=== PATIENT | female | born 1990 | race American Indian/Alaskan Native ===

== ENCOUNTER 2017-01-26 23:18 | Emergency (ER) | payer MEDICAID ==
[2017-01-27 05:07] VITALS: BP 114/67
--- NOTE | 2017-01-27 05:38 | Emergency Department Report ---
HPI - General Chief Complaint: Extremity Injury, Lower Time Seen by Provider: 01/27/17 05:34 - HPI HPI: Patient is a 26-year-old female presents to ED complaining of right foot pain 1 day. Patient states she was stepping out of her back porch earlier today when she missed a step and tripped and twisted her foot. Patient states she was fine for a couple of hours but about 4 hours later she started to experience pain with weightbearing on the right foot. Patient denies fever/chills/nausea/vomiting/abdominal pain/chest pain/shortness of breath or any other problems. ED Past Medical Hx - Past Medical History Previous Medical History?: Yes Hx Hypertension: Yes (PIH) - Surgical History Past Surgical History?: No - Social History Smoking Status: Never Smoker - Medications Home Medications: Home Medications Medication Instructions Recorded Confirmed Last Taken Type Acetaminophen/Codeine [Tylenol #3] 1 tab PO Q6H PRN #12 tab 01/27/17 Unknown Rx Ibuprofen [Motrin] 800 mg PO Q8HR PRN #30 tablet 01/27/17 Unknown Rx ED Review of Systems ROS: Stated complaint: POSS BROKEN R TOE/PAIN Other details as noted in HPI Constitutional: denies: chills, fever Eyes: denies: eye pain, eye discharge, vision change ENT: denies: ear pain, throat pain Respiratory: denies: cough, shortness of breath, wheezing Cardiovascular: denies: chest pain, palpitations Endocrine: no symptoms reported Gastrointestinal: denies: abdominal pain, nausea, vomiting, diarrhea Genitourinary: denies: urgency, dysuria, discharge Musculoskeletal: denies: back pain, joint swelling, arthralgia Skin: denies: rash, lesions, change in color, pruritus Neurological: denies: headache, weakness, paresthesias Psychiatric: denies: anxiety, depression Hematological/Lymphatic: denies: easy bleeding, easy bruising Physical Exam - Physical Exam Vital Signs: Vital Signs 01/27/17 01/27/17 01/27/17 00:12 03:10 03:23 Temperature 98.4 F Pulse Rate 70 Respiratory 18 12 Rate Blood Pressure 106/65 98/41 Blood Pressure [Right] O2 Sat by Pulse 100 98 Oximetry 01/27/17 01/27/17 01/27/17 03:30 03:45 04:00 Temperature 98.5 F Pulse Rate Respiratory Rate Blood Pressure 97/58 97/61 96/53 Blood Pressure 128/78 [Right] O2 Sat by Pulse Oximetry 01/27/17 01/27/17 01/27/17 04:15 04:30 04:45 Temperature Pulse Rate Respiratory Rate Blood Pressure 98/59 104/53 114/67 Blood Pressure [Right] O2 Sat by Pulse Oximetry Physical Exam: GENERAL: Alert and oriented x3, no apparent distress, Normal Gait, atraumatic. HEAD: Head is normocephalic and a-traumatic. EYES: Extra ocular muscles are intact. Pupils are equal, round, and reactive to light and accommodation. NOSE: Nose symetrical, Nontender,Nares appeared normal. NECK: Supple. Non edematous, No carotid bruits. No lymphadenopathy or thyromegaly. No C-spine tenderness LUNGS: Symetrical with respiration, No wheezing, no rales or crackles, CTAB. HEART: S1, S2 present, regular rate and rhythm without murmur, no rubs, no gallops. ABDOMEN: No organomegaly was noted,Positive bowel sounds, soft, and non- distended. . Nontender to palpation on all Quadrants, NO CVA tenderness. EXTREMITIES/MUSCULOSKELETAL: No cyanosis, clubbing, rash, lesions or edema. Full ROM bilaterally. LE Pulses 2+ bilaterally. LE 5+ strength bilaterally. Foot has full range of motion. Patient able to wiggle her toes without difficulty. Mild tenderness to palpation over the fourth and fifth metatarsal bones. No swelling, no ecchymosis, no dislocation. Patient able to plantarflex and dorsiflex the right foot with no pain NEUROLOGIC: No focal Deficit, Cranial nerves II through XII are grossly intact. No loss of sensation, PSYCHIATRIC: Mood is congruent with affect, denies suicidal or homicidal ideations. SKIN: Warm and dry, No lesions, No ulceration or induration present. ED Course Vital Signs 01/27/17 01/27/17 01/27/17 00:12 03:10 03:23 Temperature 98.4 F Pulse Rate 70 Respiratory 18 12 Rate Blood Pressure 106/65 98/41 Blood Pressure [Right] O2 Sat by Pulse 100 98 Oximetry 01/27/17 01/27/17 01/27/17 03:30 03:45 04:00 Temperature 98.5 F Pulse Rate Respiratory Rate Blood Pressure 97/58 97/61 96/53 Blood Pressure 128/78 [Right] O2 Sat by Pulse Oximetry 01/27/17 01/27/17 01/27/17 04:15 04:30 04:45 Temperature Pulse Rate Respiratory Rate Blood Pressure 98/59 104/53 114/67 Blood Pressure [Right] O2 Sat by Pulse Oximetry ED Medical Decision Making - Radiology Data Radiology results: report reviewed, image reviewed FINAL REPORT PROCEDURE: XR FOOT 3 RT TECHNIQUE: RIGHT foot radiographs, AP, lateral, and oblique views. CPT 71673 HISTORY: fall; right foot pain COMPARISON: No prior studies are available for comparison. FINDINGS: Fracture (s) and/or Dislocation(s): None . Alignment: Moderate hallux valgus deformity. Joint space(s): Normal . Soft tissues: Normal . Bone mineralization: Normal . Foreign bodies: None . Calcaneal spurring: None . IMPRESSION: No evidence of an acute fracture or dislocation. There is a moderate hallux valgus deformity.. Transcribed By: [facility] Dictated By: NEELA CLARK MD Electronically Authenticated By: NEELA CLARK MD Signed Date/Time: 01/27/17 0547 - Medical Decision Making 26-year-old female presents with right foot sprain ED course: Patient received Tylenol in ED. X-ray of right foot taken. X-ray of right foot shows: See above Discussed findings with patient. Discussed the patient's restlessness of the next couple of days. Discussed the not put as much pressure on the foot. Discussed foot exercises. Discussed rice protocol with patient. Discussed pain medication as prescribed. Discussed the patient to follow up with primary care physician as referred. Vital signs are normal patient is in no acute distress or wrist or distress Application resting comfortably with ice on her foot. Discussed Alex bandage of the right foot and postop shoe to help with weightbearing. Critical care attestation.: If time is entered above; I have spent that time in minutes in the direct care of this critically ill patient, excluding procedure time. ED Disposition Clinical Impression: Foot sprain Qualifiers: Encounter type: initial encounter Laterality: right Qualified Code(s): S93.601A - Unspecified sprain of right foot, initial encounter Disposition: DISCHARGED TO HOME OR SELFCARE Is pt being admited?: No Does the pt Need Aspirin: No Condition: Stable Instructions: Foot Sprain (ED), RICE Therapy (ED) Prescriptions: Acetaminophen/Codeine [Tylenol #3] 1 tab PO Q6H PRN #12 tab PRN Reason: Pain Ibuprofen [Motrin] 800 mg PO Q8HR PRN #30 tablet PRN Reason: Pain Referrals: PRIMARY CARE, [Primary Care Provider] - 3-5 Days DANNY HODGES MD [Referring] - 3-5 Days USHA TIDWELL MD [Referring] - 3-5 Days [facility] [Outside] - 3-5 Days [facility] - 3[facility]5 Days [facility] [Outside] - 3-5 Days [facility] [Outside] - 3-5 Days Forms: Work/School Release Form Time of Disposition: 05:46
[2017-01-27] MEDS ORDERED: TYLENOL PO ONE (05:43)
--- NOTE | 2017-01-27 05:52 | XRay Report ---
FINAL REPORT PROCEDURE: XR FOOT 3 RT TECHNIQUE: RIGHT foot radiographs, AP, lateral, and oblique views. CPT 73740 HISTORY: fall; right foot pain COMPARISON: No prior studies are available for comparison. FINDINGS: Fracture (s) and/or Dislocation(s): None . Alignment: Moderate hallux valgus deformity. Joint space(s): Normal . Soft tissues: Normal . Bone mineralization: Normal . Foreign bodies: None . Calcaneal spurring: None . IMPRESSION: No evidence of an acute fracture or dislocation. There is a moderate hallux valgus deformity..
== END 2017-01-27 06:45 | disposition home or self-care (01) ==
LOC: ED 23:18
DX: S93.601A Unspecified sprain of right foot, initial encounter (principal); I10 Essential (primary) hypertension; W22.8XXA Striking against or struck by other objects, initial encounter; Y93.89 Activity, other specified; Y99.9 Unspecified external cause status; Y92.89 Other specified places as the place of occurrence of the external cause

== ENCOUNTER 2019-06-09 15:20 | Emergency (ER) | payer SELFPAY ==
--- NOTE | 2019-06-09 15:57 | Event Note ---
ED Screening Note ED Screening Note: pt presents with vaginal pain that began today states she has pain with walking denies any discharge denies any urinary sx no PMHx no allergies to meds This initial assessment/diagnostic orders/clinical plan/treatment(s) is/are subject to change based on patients health status, clinical progression and re- assessment by fellow clinical providers in the ED. Further treatment and workup at subsequent clinical providers discretion. Patient/guardian urged not to elope from the ED as their condition may be serious if not clinically assessed and managed. Initial orders include: UA, urine preg
[2019-06-09 17:14] LABS: Bilirubin,Urine NEG (Negative); Blood,Urine NEG (Negative); Color,Urine Amber (Yellow); Mucus,Urine 3+ /HPF
[2019-06-09 17:15] LABS: HCG Qualitative,Urine Negative (Negative)
[2019-06-09 17:50] LABS: Basophils % (Auto) 0.6 % (0.0-1.8); Eosinophils # (Auto) 0.1 K/mm3 (0.0-0.4); Eosinophils % (Auto) 1.5 % (0.0-4.3); Hematocrit 39.7 % (30.3-42.9); Hemoglobin 13.3 gm/dl (10.1-14.3); Lymphocytes # (Auto) 1.7 K/mm3 (1.2-5.4); Lymphocytes % (Auto) 28.1 % (13.4-35.0); Mean Corpuscular HGB Conc 33 % (30-34); Mean Corpuscular Volume 88 fl (79-97); Monocytes # (Auto) 0.5 K/mm3 (0.0-0.8); Monocytes % (Auto) 7.6 % (0.0-7.3); Platelet Count 207 K/mm3 (140-440); Red Blood Count 4.49 M/mm3 (3.65-5.03); Red Cell Distribution Width 13.8 % (13.2-15.2)
--- NOTE | 2019-06-09 17:59 | Emergency Department Report ---
ED Female HPI - General Chief complaint: Abdominal Pain Stated complaint: CRAMPS/VAGINAL ISSUES Time Seen by Provider: 06/09/19 15:56 Source: patient Mode of arrival: Ambulatory Limitations: No Limitations - History of Present Illness Initial comments: This is a 29-year-old female nontoxic, well nourished in appearance, no acute signs of distress presents to the ED with c/o of pelvic pain and vaginal discharge. Patient denies any n/v. Patient describes pelvic pain as cramping and aching with level of 3/10 diffuse. Patient denies chest pain, short of breath, fever, chills, headache, stiff neck, numbness or tingling. Patient stated is concerned about STD. Patient denies any diarrhea or constipation. Patient denies any recent travels. Patient denies any allergies or PMH. MD Complaint: vaginal discharge, pelvic pain, possible STD -: days(s) Radiation: non-radiating Severity: mild Severity scale (0 -10): 3 Quality: cramping, aching Consistency: constant Improves with: none Worsens with: none Are you Now?: No Associated Symptoms: vaginal discharge. denies: vaginal bleeding, abdominal pain, nausea/vomiting, fever/chills, headaches, loss of appetite, dysuria, hematuria, rash, seizure, shortness of breath, syncope, weakness - Related Data Sexually active: Yes Previous Rx's Medication Instructions Recorded Last Taken Type Acetaminophen/Codeine [Tylenol #3] 1 tab PO Q6H PRN #12 tab 01/27/17 Unknown Rx Ibuprofen [Motrin] 800 mg PO Q8HR PRN #30 tablet 01/27/17 Unknown Rx Sulfamethoxazole/Trimethoprim 1 each PO BID #12 tablet 06/09/19 Unknown Rx [Bactrim DS TAB] metroNIDAZOLE [Flagyl] 500 mg PO Q12HR #12 tab 06/09/19 Unknown Rx Allergies Allergy/AdvReac Type Severity Reaction Status Date / Time No Known Allergies Allergy Verified 06/09/19 15:26 ED Review of Systems ROS: Stated complaint: CRAMPS/VAGINAL ISSUES Other details as noted in HPI Constitutional: denies: chills, fever Eyes: denies: eye pain, eye discharge, vision change ENT: denies: ear pain, throat pain Respiratory: denies: cough, shortness of breath, wheezing Cardiovascular: denies: chest pain, palpitations Endocrine: no symptoms reported Gastrointestinal: denies: abdominal pain, nausea, diarrhea Genitourinary: discharge. denies: urgency, dysuria Musculoskeletal: denies: back pain, joint swelling, arthralgia Skin: denies: rash, lesions Neurological: denies: headache, weakness, paresthesias Psychiatric: denies: anxiety, depression Hematological/Lymphatic: denies: easy bleeding, easy bruising ED Past Medical Hx - Past Medical History Previous Medical History?: No Hx Hypertension: Yes (PIH) - Surgical History Past Surgical History?: No - Social History Smoking Status: Current Every Day Smoker Substance Use Type: Marijuana - Medications Home Medications: Home Medications Medication Instructions Recorded Confirmed Last Taken Type Acetaminophen/Codeine [Tylenol #3] 1 tab PO Q6H PRN #12 tab 01/27/17 Unknown Rx Ibuprofen [Motrin] 800 mg PO Q8HR PRN #30 tablet 01/27/17 Unknown Rx Sulfamethoxazole/Trimethoprim 1 each PO BID #12 tablet 06/09/19 Unknown Rx [Bactrim DS TAB] metroNIDAZOLE [Flagyl] 500 mg PO Q12HR #12 tab 06/09/19 Unknown Rx ED Physical Exam - General Limitations: No Limitations General appearance: alert, in no apparent distress - Head Head exam: Present: atraumatic, normocephalic - Neck Neck exam: Present: normal inspection, full ROM. Absent: tenderness, meningismus, lymphadenopathy - Respiratory Respiratory exam: Present: normal lung sounds bilaterally. Absent: respiratory distress, wheezes, rales, rhonchi, stridor, chest wall tenderness, accessory muscle use, decreased breath sounds, prolonged expiratory - GI/Abdominal GI/Abdominal exam: Present: soft, normal bowel sounds. Absent: distended, tenderness, guarding, rebound, rigid, diminished bowel sounds - External exam: Present: normal external exam, other (outboard system operator Bertha present during exam). Absent: erythema, swelling, lesions, lacerations, ecchymosis, bleeding Speculum exam: Present: cervical discharge, other (outboard system operator Bertha present during exam). Absent: erythema, vaginal discharge, vaginal bleeding, foreign body, tissue, laceration Bi-manual exam: Present: cervical motion tendernes, other (outboard system operator Bertha present during exam). Absent: adnexal tenderness, adnexal mass, uterine enlargement, uterine tenderness - Extremities Exam Extremities exam: Present: normal inspection, full ROM - Back Exam Back exam: Present: normal inspection, full ROM. Absent: tenderness, CVA tenderness (R), CVA tenderness (L), muscle spasm, paraspinal tenderness, vertebral tenderness, rash noted - Neurological Exam Neurological exam: Present: alert, oriented X3, normal gait - Psychiatric Psychiatric exam: Present: normal affect, normal mood - Skin Skin exam: Present: warm, dry, intact, normal color. Absent: rash ED Course Vital Signs 06/09/19 06/09/19 15:56 18:15 Temperature 98.7 F 98.8 F Pulse Rate 55 L 56 L Respiratory 18 15 Rate Blood Pressure 99/53 Blood Pressure 109/65 [Left] O2 Sat by Pulse 100 99 Oximetry - Reevaluation(s) Reevaluation #1: 06/09/19 18:02 Patient is speaking in full sentences with no signs of distress noted. ED Medical Decision Making - Lab Data Result diagrams: 06/09/19 17:36 06/09/19 17:36 - Medical Decision Making This is a 28-year-old female that presents with possible STD and urinary tract infection. Patient is stable was examined by me. There is no abdominal tenderness. Patient does have a positive cervical motion tenderness. No pelvic pain. UA obtained. Labs unremarkable. Wet prep obtained. Gonorrhea chlamydia swab pending. Patient was instructed to return in 3-5 days for GC results. Patient received 250 mg Rocephin and 1 g of azithromycin by mouth. Patient was instructed to Follow-up with a primary care doctor in 3-5 days or if symptoms worsen and continue return to emergency room as soon as possible. At time of discharge, the patient does not seem toxic or ill in appearance. No acute signs of distress noted. Patient agrees to discharge treatment plan of care. No further questions noted by the patient. Critical care attestation.: If time is entered above; I have spent that time in minutes in the direct care of this critically ill patient, excluding procedure time. ED Disposition Clinical Impression: Trichomonas vaginitis, PID (acute pelvic inflammatory disease) UTI (urinary tract infection) Qualifiers: Urinary tract infection type: acute cystitis Hematuria presence: without hematuria Qualified Code(s): N30.00 - Acute cystitis without hematuria Disposition: TO HOME OR SELFCARE Is pt being admited?: No Does the pt Need Aspirin: No Condition: Stable Instructions: Safe Sex (ED), Metronidazole (By mouth) Additional Instructions: Follow-up with a OBGYN doctor in 3-5 days or if symptoms worsen and continue return to emergency room as soon as possible. Prescriptions: Sulfamethoxazole/Trimethoprim [Bactrim DS TAB] 1 each PO BID #12 tablet metroNIDAZOLE [Flagyl] 500 mg PO Q12HR #12 tab [facility] [Primary Care Provider] - 3-5 Days PRIMARY CAREMD [Referring] - 3-5 Days JOCELYNE SKINNER MD [Staff Physician] - 3-5 Days [facility] [Outside] - 3-5 Days [facility] [Outside] - 3-5 Days Forms: Work/School Release Form(ED)
[2019-06-09 18:14] LABS: Alanine Aminotransferase 8 units/L (7-56); Albumin 4.7 g/dL (3.9-5); BUN/Creatinine Ratio 10; Blood Urea Nitrogen 7 mg/dL (7-17); Calcium 9.7 mg/dL (8.4-10.2); Hemolysis Index 4
[2019-06-09 18:16] VITALS: BP 109/65
[2019-06-09] MEDS ORDERED: ZITHROMAX PO ONE (18:53)
[2019-06-09] MEDS ORDERED: ROCEPHIN IM ONE (18:54)
[2019-06-09] MEDS ORDERED: XYLOCAINE 1% MPF 5 mL INFILTRATI ONE (18:54)
== END 2019-06-09 19:31 | disposition home or self-care (01) ==
LOC: ED 15:20
DX: A59.01 Trichomonal vulvovaginitis (principal); N73.9 Female pelvic inflammatory disease, unspecified; N39.0 Urinary tract infection, site not specified; I10 Essential (primary) hypertension; F17.200 Nicotine dependence, unspecified, uncomplicated; F12.10 Cannabis abuse, uncomplicated; Z79.899 Other long term (current) drug therapy
CPT/HCPCS: 36415; 80053; 81001; 81025; 83690; 85025; 87086; 87210; 87591; 96372; 99284; J0696

== ENCOUNTER 2020-03-26 14:48 | Emergency (ER) | payer MEDICAID ==
[2020-03-26 14:56] VITALS: BP 133/99
--- NOTE | 2020-03-26 15:03 | Emergency Department Report ---
Chief Complaint: Dental/Oral Stated Complaint: TOOTH PAIN - HPI History of Present Illness: 29-year-old -[place] female presents to the emergency room complaining of right lower jaw tooth ache for x2 months. Patient reports that when she takes breath it hurts the back of her throat. Patient reports she has been taking extra strength Tylenol p.m. without much relief. Patient denies any cough fever shortness of breath chest pain. Patient reports she has appointment on [facility]. - Exam Vital Signs: Vital Signs 03/26/20 14:50 Temperature 98.6 F Pulse Rate 66 Respiratory 16 Rate Blood Pressure 133/99 O2 Sat by Pulse 100 Oximetry Physical Exam: Patient is alert and oriented no acute distress nontoxic in appearance Oral mucosa moist tooth #1 partially erupted with no abscess appreciated nonerythematous mild tenderness to tooth #1. Throat patent no tonsillar hypertrophy treated mild erythematous no exudate. MSE screening note: Focused history and physical exam performed. Due to findings the following was ordered: 29-year-old -[place] female presents to the emergency room complaining of right lower jaw tooth ache for x2 months. Patient reports that when she takes breath it hurts the back of her throat. Patient reports she has been taking extra strength Tylenol p.m. without much relief. Patient denies any cough fever shortness of breath chest pain. Patient reports she has appointment on Friday with [facility]. Recommend to take [id number] ibuprofen 600 mg every 6-8 hours as needed for pain management. Keep your appointment with [facility] on Friday. ED Disposition for [facility] Disposition: MED SCREENING EXAM-LEFT Is pt being admited?: No Does the pt Need Aspirin: No Condition: Stable Additional Instructions: Recommend to take [id number] ibuprofen 600 mg every 6-8 hours as needed for pain management. Keep your appointment with [facility] on Friday. Referrals: [facility] [Outside] - 3-5 Days [facility] [Outside] - 3-5 Days Forms: Work/School Release Form(ED)
== END 2020-03-26 15:17 | disposition left against medical advice (07) ==
LOC: ED 14:48
DX: K08.89 Other specified disorders of teeth and supporting structures (principal); I10 Essential (primary) hypertension
CPT/HCPCS: 99283

== ENCOUNTER 2022-01-14 13:02 | Outpatient (CLI) | payer OTHER ==
[2022-01-14] MEDS ORDERED: LACTATED RINGERS 500 ML IV ONE (13:07)
[2022-01-14] MEDS ORDERED: ACETAMINOPHEN 325 MG TAB PO PRN (14:10)
[2022-01-14 14:13] VITALS: BP 124/72
[2022-01-14 14:24] LABS: Bilirubin,Urine NEG (Negative); Blood,Urine SM (Negative); Color,Urine Yellow (Yellow); Mucus,Urine FEW /HPF; Urobilinogen,Urine < 2.0 mg/dL (<2.0)
--- NOTE | 2022-01-14 17:55 | Ultrasound Report ---
ULTRASOUND OBSTETRIC LIMITED INDICATION / CLINICAL INFORMATION: R/O abruptions. Clinical Gestational Age (GA): 27.0 weeks.days COMPARISON: None available. FINDINGS: HEART RATE (beats per minute): 143 AMNIOTIC FLUID INDEX (cm) = not assessed (visually normal) PRESENTATION: Cephalic. ADDITIONAL FINDINGS: Placenta grade 1 without previa or abruption IMPRESSION: 1. No significant abnormality. Signer Name: Eric Betts MD Signed: 01/14/2022 5:50 PM Workstation Name: [id number]
== END 2022-01-14 18:16 | disposition home or self-care (01) ==
LOC: TRG 13:02 → APU 13:05 → TRG 18:16
PROVIDERS: ATTEND Obstetrics & Gynecology
DX: O26.892 Other specified pregnancy related conditions, second trimester (principal); M54.50 Low back pain, unspecified; R10.32 Left lower quadrant pain; R10.2 Pelvic and perineal pain; Z3A.27 27 weeks gestation of pregnancy
CPT/HCPCS: 76815; 81001; 87086